=== PATIENT | female | born 1970 | race Two or more races ===

== ENCOUNTER → 2018-08-09 10:00 | Outpatient (CLI) | payer OTHER, SELFPAY ==
--- NOTE | 2018-08-09 10:08 | MM_ITS ---
MM Dig screening mamm BI w/CAD CAD Screening COMPARISON: Digital mammograms with CAD 09/09/2013 and additional views right breast 10/02/2013 INDICATION: There is no personal or family history of breast cancer TECHNIQUE: Standard CC and MLO images were obtained. R2 CAD reviewed. FINDINGS: Mild scattered fiber glandular densities are seen in the central portions of both breasts. There is a possible asymmetric density central portion of the left breast only definitely seen on the CC projection. This may been present previously but appears slightly more prominent on today's study. Recommend patient return for spot compression CC view and 90 degrees lateral view and spot MLO view and ultrasound may be necessary as well. There are no suspicious microcalcifications. IMPRESSION: Fibrofatty parenchyma possible asymmetric density left breast BI-RADS Category: 0 Need Additional Imaging Evaluation RECOMMENDED FOLLOW-UP: IMM - IMMEDIATE FOLLOW-UP RECOMMENDED (A letter has been sent to the patient regarding results of the study.)
== END ==
PROVIDERS: Visit Provider Nurse Practitioner Obstetrics & Gynecology
DX: Z12.31 Encounter for screening mammogram for malignant neoplasm of breast (principal)
CPT/HCPCS: 77067

== ENCOUNTER → 2018-08-26 13:35 | Outpatient (CLI) | payer OTHER, SELFPAY ==
--- NOTE | 2018-08-26 13:41 | MM_ITS ---
MM Dig mamm DX unilat LT CAD, US breast LT complete INDICATION: Follow-up abnormal screening exam ORDERING PHYSICIAN: Briseida Manrique PATIENT AGE: 48 years COMPARISON: 921 and 18, 09/07/2013 TECHNIQUE: Problem-solving views left breast along left breast ultrasound FINDINGS: There is average fibroglandular tissue. The area of asymmetric density within the the central aspect of the left breast does appear to compress out and probably unchanged from 09/07/2013.. There is asymmetric density in the superior and lateral aspect of the left breast appear to compress out on focal spot compression view. No sonographic correlate. This also was probably present and unchanged on 09/09/2013 as well as an older film screen exam of 04/29/2007. No malignant appearing mass or malignant appearing microcalcification. Left breast ultrasound: No cystic or solid nodules evident IMPRESSION: Asymmetric densities of the left breast may be related to asymmetric fibroglandular tissue and overall not felt to be significantly changed. No sonographic correlate. Probably benign. BI-RADS Category: 3 Probably Benign Finding Short Term Follow-up RECOMMENDED FOLLOW-UP: 6M - 6 MONTH FOLLOW-UP (A letter has been sent to the patient regarding results of the study.)
== END ==
PROVIDERS: Visit Provider Nurse Practitioner Family
DX: R92.8 Other abnormal and inconclusive findings on diagnostic imaging of breast (principal)
CPT/HCPCS: 76641; 77065

== ENCOUNTER → 2019-02-20 12:31 | Outpatient (CLI) | payer OTHER, SELFPAY ==
--- NOTE | 2019-02-20 12:54 | MM_ITS ---
MM Dig mamm DX unilat LT CAD, Ordering Physician: Briseida Manrique Patient Age: 48 years Female COMPARISON: August 2018 left mammogram and left breast ultrasound. July 2018 screening mammogram August 2013 bilateral lateral screening mammogram INDICATION: Follow-up densities left breast TECHNIQUE: Left mammogram. Cc MLO and 90 degree view DIAGNOSTIC MAMMOGRAM LEFT BREAST 6 month follow-up CC, MLO view, and 90 degree view images of left breast performed today. I would note that the area of density previously noted at the superior left breast on MLO view does dissipate somewhat on the 90 degree view. Overall findings are compatible with previous studies from 2018 as well as 2013. No significant progression or new findings.. Specifically the focal density at the deep central breast on cc view appears less dense and less evident on today's views versus previous studies. . The other area of asymmetric density seen laterally cc view & towards upper-outer quadrant has not changed since 2018 study.. These current areas of density axillary appear to be present on 2013 cc as well. Can be followed IMPRESSION: 1. .. Left breast: mammogram images show no new areas of concern. Relative areas of density superior left breast stable. There is some nodularity are stable to less evident than 2018 study. BI-RADS Category: 2 Benign Finding(s) RECOMMENDED FOLLOW-UP: 6M 6 MONTH FOLLOW-UP Follow-up bilateral mammogram in 6 months to resume annual scheduled A letter has been sent to the patient regarding results of the study.)
== END ==
PROVIDERS: Visit Provider Nurse Practitioner Family
DX: R92.8 Other abnormal and inconclusive findings on diagnostic imaging of breast (principal)
CPT/HCPCS: 77065